=== PATIENT | male | born 1945 | race Two or more races ===

== ENCOUNTER 2017-07-27 08:04 | Outpatient (CLI) | payer OTHER | END 2017-07-27 09:02 | disposition home or self-care (01) | LOC: LAB 08:04 | DX: C61 Malignant neoplasm of prostate (principal) ==

== ENCOUNTER 2017-09-01 08:57 | Emergency (ER) | payer OTHER ==
[~2017-09-01] VITALS: Ht 182.9 cm; Wt 98.0 kg
[2017-09-01] MEDS ORDERED: COZAAR50 MG PO (09:07)
== END 2017-09-01 11:37 | disposition home or self-care (01) ==
LOC: ER 08:57
DX: R31.0 Gross hematuria (principal); K80.80 Other cholelithiasis without obstruction; K57.30 Diverticulosis of large intestine without perforation or abscess without bleeding

== ENCOUNTER 2017-10-16 07:07 | Outpatient (CLI) | payer OTHER ==
[~2017-10-16 07:07] MED LIST: COZAAR50 MG PO
== END 2017-10-16 07:17 | disposition home or self-care (01) ==
LOC: LAB 07:07
DX: C61 Malignant neoplasm of prostate (principal)

== ENCOUNTER 2018-03-28 07:21 | Outpatient (CLI) | payer OTHER | END 2018-03-28 07:31 | disposition home or self-care (01) | LOC: LAB 07:21 | DX: C61 Malignant neoplasm of prostate (principal); N18.3 Chronic kidney disease, stage 3 (moderate); I10 Essential (primary) hypertension; R80.8 Other proteinuria ==

== ENCOUNTER → 2018-10-29 07:26 | Outpatient (CLI) | payer OTHER | END | disposition home or self-care (01) | LOC: LAB 07:26 | DX: C61 Malignant neoplasm of prostate (principal); I10 Essential (primary) hypertension; R80.8 Other proteinuria; D50.8 Other iron deficiency anemias; E03.8 Other specified hypothyroidism; E78.2 Mixed hyperlipidemia; I11.9 Hypertensive heart disease without heart failure; E56.8 Deficiency of other vitamins; N39.0 Urinary tract infection, site not specified; Z12.11 Encounter for screening for malignant neoplasm of colon; E55.9 Vitamin D deficiency, unspecified; E11.9 Type 2 diabetes mellitus without complications; C18.0 Malignant neoplasm of cecum; K92.1 Melena ==

== ENCOUNTER → 2019-04-24 09:12 | Outpatient (CLI) | payer OTHER | END | disposition home or self-care (01) | LOC: LAB 09:12 | DX: C61 Malignant neoplasm of prostate (principal); N18.2 Chronic kidney disease, stage 2 (mild); D50.8 Other iron deficiency anemias; E03.8 Other specified hypothyroidism; E78.2 Mixed hyperlipidemia; I11.9 Hypertensive heart disease without heart failure; E56.8 Deficiency of other vitamins; N39.0 Urinary tract infection, site not specified; Z12.11 Encounter for screening for malignant neoplasm of colon; E55.9 Vitamin D deficiency, unspecified; E11.9 Type 2 diabetes mellitus without complications; R80.8 Other proteinuria; C18.0 Malignant neoplasm of cecum; K92.1 Melena ==

== ENCOUNTER → 2019-10-27 07:41 | Outpatient (CLI) | payer OTHER | END | disposition home or self-care (01) | LOC: LAB 07:41 | PROVIDERS: ATTEND Urology | DX: C61 Malignant neoplasm of prostate (principal); N18.2 Chronic kidney disease, stage 2 (mild); R80.8 Other proteinuria ==

== ENCOUNTER 2020-04-21 07:14 | Outpatient (CLI) | payer OTHER | END 2020-04-21 07:24 | disposition home or self-care (01) | LOC: LAB 07:14 | PROVIDERS: ATTEND Urology | DX: C61 Malignant neoplasm of prostate (principal); I10 Essential (primary) hypertension ==

== ENCOUNTER 2020-08-19 13:38 | Emergency (ER) | payer OTHER ==
[~2020-08-19] VITALS: Ht 198.1 cm; Wt 98.0 kg
[2020-08-19] MEDS ORDERED: COLCHICINE0.6 M1 PO (17:03)
[2020-08-19] MEDS ORDERED: INDOMETHACIN50 MG PO (17:03)
== END 2020-08-19 20:52 | disposition home or self-care (01) ==
LOC: ER 13:38
DX: M10.061 Idiopathic gout, right knee (principal); M25.561 Pain in right knee

== ENCOUNTER 2020-09-05 11:21 | Outpatient (CLI) | payer OTHER ==
[~2020-09-05 11:21] MED LIST changes: +COLCHICINE0.6 M1 PO; +INDOMETHACIN50 MG PO
== END 2020-09-05 11:26 | disposition home or self-care (01) ==
LOC: LAB 11:21
PROVIDERS: ATTEND Urology
DX: R31.0 Gross hematuria (principal); N30.00 Acute cystitis without hematuria

== ENCOUNTER 2021-08-03 07:22 | Outpatient (CLI) | payer OTHER | END 2021-08-03 07:34 | disposition home or self-care (01) | LOC: LAB 07:22 | PROVIDERS: ATTEND Urology | DX: C61 Malignant neoplasm of prostate (principal) ==

== ENCOUNTER 2022-09-03 07:52 | Outpatient (CLI) | payer OTHER | END 2022-09-03 07:53 | disposition home or self-care (01) | LOC: NUCLEAR 07:52 | PROVIDERS: ATTEND Internal Medicine Nephrology | DX: I87.2 Venous insufficiency (chronic) (peripheral) (principal); I82.409 Acute embolism and thrombosis of unspecified deep veins of unspecified lower extremity; M71.21 Synovial cyst of popliteal space [Baker], right knee ==